=== PATIENT | female | born 1950 | race African-American/Black ===

== ENCOUNTER 2021-02-18 00:05 | Emergency (ER) | payer MEDICARE, BC ==
[~2021-02-18] VITALS: Ht 165.1 cm; Wt 68.0 kg
[2021-02-18] MEDS ORDERED: TETANUS, DIPHTHERIA, PERTUSSIS VAC/PF 0.5ML (>10YR OLD) IM ONE (00:30)
[2021-02-18 01:04] LABS: CLARITY URINE CLEAR (CLEAR); COLOR URINE YELLOW (YELLOW); KETONES URINE NEGATIVE (NEGATIVE); LEUKOCYTE ESTERASE URINE 1+ (NEGATIVE); NITRITE URINE NEGATIVE (NEGATIVE); OCCULT BLOOD URINE NEGATIVE (NEGATIVE); PROTEIN URINE NEGATIVE (NEGATIVE); SPECIFIC GRAVITY URINE 1.007 (1.005-1.030); UROBILINOGEN URINE 0.2 E.U./dL (0.2-1.0)
[2021-02-18 01:25] LABS: BASOPHILS % 0.7 % (0.0-2.0); EOSINOPHILS % 2.2 % (0.0-5.0); HEMOGLOBIN. 14.2 g/dL (12.0-16.0); LYMPHOCYTES % 28.2 % (20.0-50.0); MEAN CORPUSCULAR HEMOGLOBIN 32.4 pg (28.0-32.0); MEAN CORPUSCULAR VOLUME 95.5 fL (81.0-99.0); MEAN PLATELET VOLUME 8.6 fl (7.4-10.4); MONOCYTES % 9.2 % (2.0-8.0); NEUTROPHILS % 59.7 % (40.0-76.0); PLATELET 218 x1000/uL (130-400); RED CELL DISTRIBUTION WIDTH 13.1 % (11.6-14.6)
[2021-02-18 01:27] LABS: CHLORIDE 111 mEq/L (98-107)
[2021-02-18 01:31] LABS: ETHANOL BLOOD 274 mg/dL; PARTIAL THROMBOPLASTIN TIME 28.1 sec (23.4-31.0); PROTHROMBIN TIME 10.3 sec (9.6-11.0)
[2021-02-18 04:05] VITALS: BP 140/91
== END 2021-02-18 04:09 | disposition home or self-care (01) ==
LOC: ER 00:05
DX: F10.129 Alcohol abuse with intoxication, unspecified (principal); S01.112A Laceration without foreign body of left eyelid and periocular area, initial encounter; I10 Essential (primary) hypertension; E11.9 Type 2 diabetes mellitus without complications; W18.30XA Fall on same level, unspecified, initial encounter; Y93.89 Activity, other specified; Y92.89 Other specified places as the place of occurrence of the external cause; Y99.8 Other external cause status; Y90.8 Blood alcohol level of 240 mg/100 ml or more
CPT/HCPCS: 36415; 70486; 80053; 80320; 81003; 82962; 85025; 86850; 86900; 90471; 90715; 99285; G0480

== ENCOUNTER 2025-02-16 15:00 | Emergency (ER) | payer MEDICARE, BC ==
[~2025-02-16] VITALS: Ht 165.1 cm; Wt 78.0 kg
[2025-02-16 15:13] VITALS: O2SAT 96
[2025-02-16] MEDS: LIDOCAINE HCL/EPINEPHRINE 1%-EPI 1:100,000 20ML VIAL INFIL ONE (16:33)
[2025-02-16] MEDS: TETANUS, DIPHTHERIA, PERTUSSIS VAC/PF 0.5ML (>10YR OLD) IM ONE (16:45)
[2025-02-16 16:46] VITALS: BP 133/75; PULSE 95; RESP 14; TEMP 36.8; O2SAT 98
== END 2025-02-16 16:48 | disposition home or self-care (01) ==
LOC: ER 15:00
DX: S01.01XA Laceration without foreign body of scalp, initial encounter (principal); Z90.710 Acquired absence of both cervix and uterus; W22.8XXA Striking against or struck by other objects, initial encounter; Y93.89 Activity, other specified; Y92.89 Other specified places as the place of occurrence of the external cause; Y99.8 Other external cause status
CPT/HCPCS: 99283; 90715; 12001; 90471; J2004

== ENCOUNTER 2025-02-26 10:04 | Emergency (ER) | payer MEDICARE, BC ==
[~2025-02-26] VITALS: Ht 165.1 cm; Wt 79.3 kg
[2025-02-26 10:06] VITALS: O2SAT 98
[2025-02-26 10:16] VITALS: BP 126/79; PULSE 70; RESP 16; TEMP 36.9; O2SAT 98
== END 2025-02-26 10:49 | disposition home or self-care (01) ==
LOC: ER 10:06
DX: S01.01XD Laceration without foreign body of scalp, subsequent encounter (principal); Z90.710 Acquired absence of both cervix and uterus; X58.XXXD Exposure to other specified factors, subsequent encounter
CPT/HCPCS: 99282